=== PATIENT | male | born 1950 | race Caucasian/White ===

== ENCOUNTER 2023-07-30 13:21 | Inpatient (IN) | payer MEDICARE, OTHER, SELFPAY ==
[2023-07-30] VITALS (7 sets, daily range): BP systolic 98–117; BP diastolic 55–78; PULSE 87–109; RESP 16–18; TEMP 36.2–37.7; O2SAT 92–97; BMI 23.1; BMI 23.3
[2023-07-30 13:45] LABS: Lactate* 2.5 mmol/L (0.5-1.9)
[2023-07-30 14:05] LABS: Basophils Absolute Auto 0.01 K/uL (0.00-0.30); Basophils Percent Auto 0.1 % (0.0-3.0); Hematocrit 49.6 % (37.0-53.0); Immature Granulocytes Abs Auto 0.01 K/uL (0.00-0.30); Immature Granulocytes Pct Auto 0.1 %; Mean Corpuscular HGB Conc 32 gm/dL (32-36); Mean Corpuscular Hemoglobin 28 pg (26-34); Mean Corpuscular Volume 88 fL (80-100); Monocytes Percent Auto 8.6 % (0.0-11.0); Neutrophils Percent Auto 75.2 % (42.0-72.0); Platelet Count* 121 K/uL (140-440); RDW Coefficient of Variation % 14.1 % (11.5-15.5); Red Blood Count 5.65 m/uL (4.30-5.90); White Blood Count* 7.98 K/uL (4.50-11.00)
[2023-07-30 14:08] LABS: Slide Review Reflex No
[2023-07-30 14:09] LABS: Chloride* 101 mmol/L (96-114); Potassium* 4.5 mmol/L (3.6-5.1); Sodium* 138 mmol/L (135-149)
[2023-07-30 14:12] LABS: Est. Creatinine Clearance* 23.92; Estimated Glomerular Filt Rate 21 ml/min
[2023-07-30 14:13] LABS: Anion Gap 16 mEq/L (7-15); Blood Urea Nitrogen* 58 mg/dL (7-30); Calcium* 9.4 mg/dL (8.4-10.6); Carbon Dioxide* 21 mmol/L (20-32); Glucose* 132 mg/dL (60-115)
--- NOTE | 2023-07-30 14:17 | ED_ITS ---
<Statement entered by Chidi Wheeler MD - 08/02/23 14:21> . HPI - General Adult General Date Seen: 07/30/23 Chief complaint: Fever Stated complaint: Sepsis, low BP Time Seen by Provider: 07/30/23 13:46 Source: patient Mode of arrival: ambulatory Limitations: no limitations History of Present Illness HPI narrative: Patient is a 72-year-old male who comes in because of fevers which he says have been ongoing for 2 weeks. He says he gets shaking chills and has had temps up to 101.8. He says they resolve with Tylenol but after few hours his temperature is right back up. He denies any other symptoms including respiratory symptoms, abdominal pain, chest pain, cough, urinary symptoms, rashes, abdominal pain, vomiting or diarrhea, black or bloody stools. He does note that he had a tooth that started to bother him on of last week, and he went on to have a root canal at the beginning of this week, about 5 days ago. Medical history is notable for coronary artery disease, does have a history of atrial fibrillation and is maintained on Eliquis. He has a history of cardiac stent a number of years ago as well. Recent checkup revealed renal insufficiency. He does not know what his creatinine was. He is from [facility], does not get care around here. His apparently is at [facility]. Related Data Home Medications ?Medication ?Instructions ?Recorded ?Confirmed apixaban 5 mg tablet (Eliquis) 5 mg PO BID 07/30/23 08/09/23 atorvastatin 20 mg tablet 20 mg PO DAILY 07/30/23 08/09/23 dronedarone 400 mg tablet (Multaq) 400 mg PO BID 07/30/23 08/09/23 lisinopril 10 mg tablet 10 mg PO DAILY 07/30/23 08/09/23 Previous Rx's ?Medication ?Instructions ?Recorded Lactobacillus acidophilus 0.5 mg 100 mmu cells PO TIDWM 30 days 08/02/23 (100 million cell) tablet #180 tabs amoxicillin 875 mg-potassium 1 tab PO BIDWM 5 days #10 tabs 08/02/23 clavulanate 125 mg tablet doxycycline hyclate 100 mg tablet 100 mg PO BID 12 days #24 tabs 08/02/23 Allergies Allergy/AdvReac Type Severity Reaction Status Date / Time No Known Drug Allergies Allergy Verified 08/09/23 15:31 Review of Systems Status of ROS: Reports: 10 or more systems reviewed and unremarkable except as noted in History and below [facility] Medical History (Updated 08/17/23 @ 00:01 by Background Daemon) 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 - Other ehrlichiosis (ICD-10) Sepsis ?A41.9 - Sepsis, unspecified organism (ICD-10) Atrial fibrillation ?I48.91 - Unspecified atrial fibrillation (ICD-10) Chronic kidney disease ?N18.9 - Chronic kidney disease, unspecified (ICD-10) Coronary artery disease ?I25.10 - Atherosclerotic heart disease of [place] coronary artery without angina pectoris (ICD-10) Surgical History (Updated 07/30/23 @ 17:04 by Chidi Wheeler MD) History of root canal procedure ?Z98.890 - Other specified postprocedural states (ICD-10) History of coronary artery bypass graft ?Z95.1 - Presence of aortocoronary bypass graft (ICD-10) Social History (Updated 07/30/23 @ 17:06 by Chidi Wheeler MD) Narrative: Patient lives in [facility]. He commonly visits [place] where his is a resident of [facility]. She has multiple sclerosis. He has a son who lives in [facility] and a son who lives in [facility]. His sons are healthcare power of assistant district attorney. His code status is full. He does not smoke. He rarely drinks alcohol. 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 What is your current living situation?: I presently have a place to live Problems where you live: no known problems Problems where you live details: none In the past 12 months, utilities in danger of being shut off: no In past 12 months, lack of transportation kept you from medical appts, meetings, work, or getting things needed for daily living: no In the past 12 mos, have been you worried that your food would run out before you had money to buy more?: never true In the past 12 mos, the food you bought just didn't last and you didn't have money to buy more?: never true Highest level of school completed/degree received: Associate degree: academic program Smoking Status: Never smoker How often do you have a drink containing alcohol: monthly or less Alcohol type details: tatiana How often do you have six or more drinks on one occasion: Never AUDIT-C Alcohol total score: 1 Non-prescribed substance use: denies use Caffeine: No How often does anyone, including family, friends and others, physically hurt you : never How often does anyone, including family, friends and others, insult or talk down to you: never How often does anyone, including family, friends and others, threaten you with harm: never How often does anyone, including family, friends and others, scream or curse at you: never service: No Exam Narrative: Exam Narrative: Vital signs as noted above. In general, an alert, well-appearing patient. Head: Normocephalic, atraumatic. Eyes: Pupils are equal reactive. Extraocular movements are full. Conjunctivae are normal. ENT: Mucous membranes are moist. Throat is normal. Neck: Supple without lymphadenopathy. Heart: Irregular, rate controlled. He does have soft murmur heard left of the sternal border. Not aware of previous murmur. Lungs: Clear bilaterally. No increased work of breathing, crackles or wheezes. Abdomen: Soft and nontender. No masses. Extremities: Well perfused. No edema. No calf tenderness. Pulses intact. Neurologic: Patient is alert and oriented to person and place. Speech is fluent. Face is symmetric. Moves all extremities equally. Affect: Normal. Skin: Warm and dry. Well perfused. Const: Vital Signs, click to edit/add: Vital Signs - 24 hr 07/30/23 13:44 07/30/23 13:51 07/30/23 14:48 Temperature 97.2 F L 97.5 F L 97.5 F L Pulse Rate [Pulse Oximeter] 109 H 99 Respiratory Rate 16 18 Blood Pressure [Le ft Upper Arm] 116/78 98/56 L Pulse Oximetry 97 96 Oxygen Delivery Me thod Room Air Room Air Documenting provider has reviewed patient's vital signs: yes Course Course ED Course: An IV was established, he had a L of normal saline started. Labs were ordered. EKG shows atrial fibrillation with a ventricular rate of 98 beats per minute. No acute ST segment changes, T-waves are unremarkable. Labs thus far show a normal white blood cell count of 7.98, normal hemoglobin, platelets slightly low at 121. He has a minimal left shift with 75% neutrophils. Metabolic panel is notable for a BUN of 58 and a creatinine of 3, again baseline unknown. Blood sugar normal, lactate 2.5. CRP procalcitonin TSH are pending as is a UA. Diagnostic considerations include inflection, including bacterial endocarditis, low risk for tick-borne disease, but I did add a Lyme test and tick panel on. Discussed his care with the hospitalist as well, his lactate is 2.5 in his procalcitonin is elevated at 1.26. Source of possible infection really is not clear, given that endocarditis was on the differential I did have a 2nd set of blood cultures drawn, Dr. Wheeler saw him in the ER and will start antibiotics. Sed rate CRP are elevated, sed rate is 44 and CRP he is 9. LFTs are unremarkable. UA was negative. Vital Signs Vital signs: Initial Vital Signs Temperature 97.2 F L 07/30/23 13:44 Temperature Source Temporal Artery Scan 07/30/23 13:44 Pulse Rate 109 H 07/30/23 13:44 Respiratory Rate 16 07/30/23 13:44 Blood Pressure 116/78 07/30/23 13:44 Blood Pressure Mean 90 07/30/23 13:44 Pulse Oximetry 97 07/30/23 13:44 Oxygen Delivery Method Room Air 07/30/23 13:44 Vital Signs Temperature 97.2 F L 07/30/23 13:44 Pulse Rate 109 H 07/30/23 13:44 Respiratory Rate 16 07/30/23 13:44 Blood Pressure 116/78 07/30/23 13:44 Pulse Oximetry 97 07/30/23 13:44 Oxygen Delivery Method Room Air 07/30/23 13:44 Temperature 96.8 F L 08/02/23 11:00 Pulse Rate 78 08/02/23 11:00 Respiratory Rate 20 08/02/23 11:00 Blood Pressure 98/64 08/02/23 11:00 Pulse Oximetry 96 08/02/23 11:00 Oxygen Delivery Method Room Air 08/02/23 11:00 Medications Administered Medications: Discontinued Medications Generic Name Dose Route Start Last Admin Trade Name Freq PRN Reason Stop Dose Admin Amoxicillin/Clavulanate Potassium 875 mg 08/01/23 18:00 08/02/23 08:17 Amoxicillin/Clavulanate 875 Mg/125 Mg Tablet PO 875 mg BIDWM ELIZABETH Administration Apixaban 5 mg 07/30/23 21:00 08/02/23 09:21 Apixaban 5 Mg Tablet PO 5 mg BID ELIZABETH Administration Atorvastatin Calcium 20 mg 07/31/23 21:00 08/01/23 21:25 Atorvastatin 10 Mg Tablet PO 20 mg HS ELIZABETH Administration Doxycycline Hyclate 100 mg 07/30/23 21:00 08/02/23 09:21 Doxycycline Hyclate 100 Mg PO 100 mg BID ELIZABETH Administration Sodium Chloride 1,000 mls @ 1,000 mls/hr 07/30/23 14:00 07/30/23 15:13 0.9 % Sodium Chloride 1000 Ml IV 07/30/23 14:59 Infused .Q1H ELIZABETH Infusion Sodium Chloride 1,000 mls @ 1,000 mls/hr 07/30/23 15:00 07/30/23 16:07 0.9 % Sodium Chloride 1000 Ml IV 07/30/23 15:59 Infused .Q1H ELIZABETH Infusion Ceftriaxone Sodium 2 gm/ 100 mls @ 200 mls/hr 07/30/23 18:00 08/01/23 19:28 Sodium Chloride IVPB Infused Q24H ELIZABETH Infusion Vancomycin HCl 1,500 mg/ 515 mls @ 257.5 mls/hr 07/30/23 16:26 07/30/23 23:20 Sodium Chloride IVPB 07/30/23 16:27 Infused ONCE ONE Infusion Protocol Vancomycin HCl 1,250 mg/ 262.5 mls @ 256.25 mls/hr 08/01/23 09:00 08/01/23 19:28 Sodium Chloride IVPB Infused Q36H ELIZABETH Infusion Protocol Lactobacillus Acidophilus 2 tab 07/31/23 12:00 08/02/23 08:17 Lactobacillus Acidophilus 1 Tablet PO 2 tab TIDWM ELIZABETH Administration Metoprolol Tartrate 25 mg 07/30/23 21:00 08/02/23 09:21 Metoprolol Tartrate 25 Mg Tablet PO 25 mg BID ELIZABETH Administration Dronedarone [Multaq] 400 mg 07/30/23 21:00 08/02/23 09:21 400 Mg Tablet) PO 400 mg BID ELIZABETH Administration Perflutren Lipid Microsphere 2 ml 07/31/23 09:52 07/31/23 10:10 Perflutren Lipid Microspheres 2 Ml Vial IV 07/31/23 09:53 2 ml ONCE ONE Administration Sodium Chloride 5 ml 07/30/23 21:00 08/01/23 09:26 Sodium Chloride 0.9 % (Flush) 10 Ml Syringe IVF 5 ml BID ELIZABETH Administration Sodium Chloride 10 ml 07/31/23 10:09 08/02/23 09:23 Sodium Chloride 0.9 % (Flush) 10 Ml Syringe IVF 10 ml .FLUSH PRN Administration flush Medical Decision Making Lab Data Labs: Lab Results 07/30/23 07/30/23 07/30/23 Range/Units 13:35 13:57 14:13 WBC 7.98 (4.50-11.00) K/uL RBC 5.65 (4.30-5.90) m/uL Hgb 16.0 (13.5-17.5) gm/dL Hct 49.6 (37.0-53.0) % MCV 88 (80-100) fL MCH 28 (26-34) pg MCHC 32 (32-36) gm/dL RDW Coeff of Jack 14.1 (11.5-15.5) % Plt Count 121 L (140-440) K/uL Neut % (Auto) 75.2 H (42.0-72.0) % Lymph % (Auto) 16.0 L (20-44) % [place] % (Auto) 8.6 (0.0-11.0) % Eos % (Auto) 0.0 (0.0-7.0) % Baso % (Auto) 0.1 (0.0-3.0) % Neut # (Auto) 6.00 (1.7-7.0) K/uL Lymph # (Auto) 1.30 (0.90-2.90) K/uL [place] # (Auto) 0.70 (0.00-0.90) K/UL Eos # (Auto) 0.00 (0.00-0.50) K/uL Baso # (Auto) 0.01 (0.00-0.30) K/uL Abs Immat Gran (auto) 0.01 (0.00-0.30) K/uL Imm/Tot Granulo (auto) 0.1 % ESR 44 H (2-15) mm/hr Sodium 138 (135-149) mmol/L Potassium 4.5 (3.6-5.1) mmol/L Chloride 101 (96-114) mmol/L Carbon Dioxide 21 (20-32) mmol/L Anion Gap 16 H (7-15) mEq/L BUN 58 H (7-30) mg/dL Creatinine 3.0 H (0.5-1.5) mg/dL Estimated Creat Clear 23.92 Estimated GFR 21 ml/min Glucose 132 H (60-115) mg/dL Lactate 2.5 H (0.5-1.9) mmol/L Calcium 9.4 (8.4-10.6) mg/dL Total Bilirubin 1.1 (0.1-1.5) mg/dL Direct Bilirubin 0.4 (0.0-0.5) mg/dL AST 44 H (12-35) U/L ALT 37 (4-50) U/L Alkaline Phosphatase 67 (40-150) U/L C-Reactive Protein 9.0 H (0.5-1.0) mg/dL Total Protein 8.7 H (6.0-8.3) g/dL Albumin 4.8 (3.3-5.0) g/dL Procalcitonin 1.26 H (<0.50) ng/mL TSH 1.960 (0.270-4.200) uIU/mL Urine Color [place] A (Yellow) Urine Appearance Cloudy A (Clear) Urine pH 5.5 (5.0-8.5) Ur Specific [place] 1.020 (1.000-1.030) Urine Protein 1+ A (Negative) Urine Glucose (UA) Negative (Negative) Urine Ketones Trace A (Negative) Urine Blood Negative (Negative) Urine Nitrite Negative (Negative) Urine Bilirubin Negative (Negative) Urine Urobilinogen 0.2 (0.2-1.0) Ur Leukocyte Esterase Negative (Negative) Urine RBC 0-2 (0-2) Urine WBC 0-2 (0-5) Ur Squamous Epith Cells Few (None-Few) Amorphous Sediment Moderate A (None) Urine Bacteria Moderate A (None) Urine Mucus Few A (None) A. phagocytophilum DNA Detected A Bab[place] Species (PCR) Not Detected Lyme Disease Antibody 0.88 (<=0.90) IV SARS-CoV-2 (PCR) Negative SARS-CoV-2 (Negative) E.ewingii/canis DNA PCR Not Detected E. muris-like DNA (PCR) Not Detected Influenza Type A (PCR) Negative PCR FLU A (Negative) Influenza Type B (PCR) Negative PCR FLU B (Negative) RSV (PCR) Negative PCR RSV (Negative) Babesia microti (PCR) Not Detected E. chaffeensis (PCR) Not Detected POC Troponin I 0.03 (0.01-0.04) ng/ml Discharge Plan Discharge Condition: Improved Activity Level: Activity as Tolerated Discharge Diet: 2 gm Sodium
[2023-07-30] MEDS: 0.9 % SODIUM CHLORIDE 1000 ml 1,000 ML IV ×2 (14:24→15:13)
[2023-07-30 14:25] LABS: Troponin, Point-of-Care* 0.03 ng/ml (0.01-0.04)
[2023-07-30 14:30] LABS: Procalcitonin* 1.26 ng/mL (<0.50)
[2023-07-30 14:31] LABS: Appearance Urine Cloudy (Clear); Bilirubin Urine Negative (Negative); Blood Urine Negative (Negative); Color Urine Orange (Yellow); Glucose Urine Negative (Negative); Ketones Urine Trace (Negative); Leukocyte Esterase Urine Negative (Negative); Nitrite Urine Negative (Negative); Protein Urine 1+ (Negative); Urobilinogen Urine 0.2 (0.2-1.0); pH Urine 5.5 (5.0-8.5)
[2023-07-30 14:32] LABS: Albumin* 4.8 g/dL (3.3-5.0)
[2023-07-30 14:35] LABS: Aspartate Amino Transferase* 44 U/L (12-35); Bilirubin Direct* 0.4 mg/dL (0.0-0.5); Bilirubin Total* 1.1 mg/dL (0.1-1.5); Total Protein* 8.7 g/dL (6.0-8.3)
[2023-07-30 14:36] LABS: Alanine Aminotransferase* 37 U/L (4-50); Alkaline Phosphatase* 67 U/L (40-150)
[2023-07-30 14:44] LABS: Amorphous Sediment Urine Moderate; Bacteria Urine Moderate; RBC Urine 0-2 (0-2); Squamous Epithelial Cell Urine Few (None-Few); WBC Urine 0-2 (0-5)
[2023-07-30 14:45] LABS: Mucus Urine Few
[2023-07-30 14:49] LABS: Erythrocyte SedimentationRate* 44 mm/hr (2-15)
[2023-07-30 15:13] LABS: PCR FLU A Negative PCR FLU A (Negative); PCR FLU B Negative PCR FLU B (Negative); PCR RSV Negative PCR RSV (Negative)
[2023-07-30 15:26] LABS: SARS PCR* Negative SARS-CoV-2 (Negative)
--- NOTE | 2023-07-30 16:52 | P.IMHP_ITS ---
Hospitalist- H&P: HPI History of Present Illness Date Seen: 08/02/23 Chief complaint: Sepsis, low BP Narrative: Dc Joaquin is a 72 year old male admitted through the emergency department with fever. Patient was in his usual state of good health until July 16 when he awoke with profound fatigue and malaise. At that time he did not have a fever. He slowly got better over the next couple days that was not entirely normal when he had a routinely scheduled physical examination at clinic on July 19. At that time no obvious illness, infection was identified except they found that he had low white blood count and his creatinine was elevated at 3. The creatinine elevation was probably chronic by his reporting. In the past week he is having fevers. He can suppress the fever with acetaminophen but it comes back after a few hours. He is measuring oral temperatures at home between 101 in 102? F. Also in the past week he began to have pain in one of his molars on his right maxilla. Four days ago he was seen by his dentist for what looked like an abscessed tooth. He was started on Augmentin. Three days ago he underwent a root canal of that same tooth. He continued on Augmentin. The pain in his tooth is better. He continues to have fevers however. He has had no other symptoms of illness. Specifically denies cold, cough, sore throat, head or neck pain, shortness of breath, nausea or vomiting, abdominal pain, diarrhea, urinary problems, skin rash, swollen joints. He has no history of immunocompromise in condition. He has had no significant recent travel. This summer he visited his son in [place], [place]. He lives in [place], [place] and does spend some time outdoors. Heave visits his son in [place] and his who is a resident at [address] [place] [address]. He reports that he had a deer tick bite a few weeks ago. Other than his abscessed tooth he has not had obvious symptoms of illness. Review of Systems Narrative: Review of systems is negative except as noted above. [facility] Medical History (Updated 08/01/23 @ 16:14 by Gerard Estrada MD) Sepsis ?A41.9 - Sepsis, unspecified organism (ICD-10) Atrial fibrillation ?I48.91 - Unspecified atrial fibrillation (ICD-10) Chronic kidney disease ?N18.9 - Chronic kidney disease, unspecified (ICD-10) Coronary artery disease ?I25.10 - Atherosclerotic heart disease of [place] coronary artery without angina pectoris (ICD-10) Surgical History (Updated 07/30/23 @ 17:04 by Chidi Wheeler MD) History of root canal procedure ?Z98.890 - Other specified postprocedural states (ICD-10) History of coronary artery bypass graft ?Z95.1 - Presence of aortocoronary bypass graft (ICD-10) Social History (Updated 07/30/23 @ 17:06 by Chidi Wheeler MD) Narrative: Patient lives in [facility]. He commonly visits [place] where his is a resident of [facility]. She has multiple sclerosis. He has a son who lives in [facility] and a son who lives in [facility]. His sons are healthcare power of bench assembler electrical. His code status is full. He does not smoke. He rarely drinks alcohol. 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 What is your current living situation?: I presently have a place to live Problems where you live: no known problems Problems where you live details: none In the past 12 months, utilities in danger of being shut off: no In past 12 months, lack of transportation kept you from medical appts, meetings, work, or getting things needed for daily living: no In the past 12 mos, have been you worried that your food would run out before you had money to buy more?: never true In the past 12 mos, the food you bought just didn't last and you didn't have money to buy more?: never true Highest level of school completed/degree received: Associate degree: academic program Smoking Status: Never smoker How often do you have a drink containing alcohol: monthly or less Alcohol type details: tatiana How often do you have six or more drinks on one occasion: Never AUDIT-C Alcohol total score: 1 Non-prescribed substance use: denies use Caffeine: No How often does anyone, including family, friends and others, physically hurt you : never How often does anyone, including family, friends and others, insult or talk down to you: never How often does anyone, including family, friends and others, threaten you with harm: never How often does anyone, including family, friends and others, scream or curse at you: never service: No Meds Home Medications and Allergies Home Medications Medication Instructions Recorded Confirmed Type apixaban 5 mg tablet (Eliquis) 5 mg PO BID 07/30/23 07/31/23 History atorvastatin 20 mg tablet 20 mg PO DAILY 07/30/23 07/31/23 History dronedarone 400 mg tablet (Multaq) 400 mg PO BID 07/30/23 07/31/23 History lisinopril 10 mg tablet 10 mg PO DAILY 07/30/23 07/31/23 History Allergies Allergy/AdvReac Type Severity Reaction Status Date / Time No Known Drug Allergies Allergy Verified 07/30/23 12:09 Exam Narrative: Exam Narrative: He is alert and appears in no distress. He gives his own history. Eyes are normal. Oropharynx is normal. Neck is supple without mass or adenopathy or tenderness. Respirations are clear to auscultation. Cardiovascular: S1, S2, irregular rate and rhythm. 1/6 systolic ejection murmur at the right upper sternal border. Abdomen is soft without tenderness or mass. Skin is without rash. No splinter hemorrhages. Good peripheral pulses. Extremities are cool to touch. Const: Vital Signs, click to edit/add: Vital Signs - 24 hr 07/30/23 13:44 07/30/23 13:51 07/30/23 14:48 Temperature 97.2 F L 97.5 F L 97.5 F L Pulse Rate [Pulse Oximeter] 109 H 99 Pulse Rate [Right Pulse Oximeter] Respiratory Rate 16 18 Blood Pressure [Le ft Arm] Blood Pressure [Le ft Upper Arm] 116/78 98/56 L Blood Pressure [Ri ght Arm] Pulse Oximetry 97 96 Oxygen Delivery Me thod Room Air Room Air 07/30/23 16:33 Temperature 98.1 F Pulse Rate [Pulse Oximeter] Pulse Rate [Right Pulse Oximeter] 109 H Respiratory Rate 18 Blood Pressure [Le ft Arm] 114/67 Blood Pressure [Le ft Upper Arm] Blood Pressure [Ri ght Arm] 117/75 Pulse Oximetry 93 Oxygen Delivery Me thod Room Air Documenting provider has reviewed patient's vital signs: yes Hospitalist - H&P: Result Labs Labs: Short CBC 07/30/23 Range/Units 13:35 WBC 7.98 (4.50-11.00) K/uL Hgb 16.0 (13.5-17.5) gm/dL Hct 49.6 (37.0-53.0) % Plt Count 121 L (140-440) K/uL BMP 07/30/23 13:35 Sodium 138 Potassium 4.5 Chloride 101 Carbon Dioxide 21 BUN 58 H Creatinine 3.0 H Glucose 132 H Calcium 9.4 Liver Function 07/30/23 Range/Units 13:35 Total Bilirubin 1.1 (0.1-1.5) mg/dL Direct Bilirubin 0.4 (0.0-0.5) mg/dL AST 44 H (12-35) U/L ALT 37 (4-50) U/L Alkaline Phosphatase 67 (40-150) U/L Albumin 4.8 (3.3-5.0) g/dL Urine 07/30/23 Range/Units 14:13 Urine Color [place] A (Yellow) Urine Appearance Cloudy A (Clear) Urine pH 5.5 (5.0-8.5) Ur Specific [place] 1.020 (1.000-1.030) Urine Protein 1+ A (Negative) Urine Glucose (UA) Negative (Negative) ECG Attestation: I personally reviewed and interpreted this ECG as follows: (Atrial fibrillation with a rate of 98. Left anterior fascicular block.) ECG interpretation date: 07/30/23 Assessment and Plan Assessment and plan (1) Chronic kidney disease: Problem comment: Patient probably has had a creatinine around 3 in the past. Obtain old records to assess chronicity and plan for chronic kidney disease. Continue to monitor. Status: Acute (2) Dental abscess: Problem comment: - Developed in the last week. Root canal on 07/27/2023. - start oral Augmentin 875/1251 tab p.o. b.i.d. on 08/01/2023. Status: Acute (3) Fever: Problem comment: - Patient reports fever at home for at least a week. Cause for this is unknown. Concern for fever related to dental infection, endocarditis, tick bite. Awaiting blood cultures, which are negative to date, and serology for tick bite. Since he has been on oral antibiotics cultures may grow slowly or be negative. Empiric treatment with vancomycin and ceftriaxone. - I stopped the vancomycin and ceftriaxone on 08/01/2023. Continue to monitor overnight in hospital. Status: Acute (4) Atrial fibrillation: Problem comment: History of atrial fibrillation for several years. 2015 had a LESLY/cardioversion. Has had rhythm control with dronedarone. On Eliquis. Currently back in AFib. Continue Eliquis and monitor for now. Rate control if needed. No indication for cardioversion at this time. Status: Acute (5) Sepsis: Problem comment: Patient meets criteria for sepsis with tachycardia, hypotension, fever, elevated lactate. Because this will initiate empiric antibiotics pending cultures Status: Acute (6) Chronic systolic heart failure: Problem comment: - transthoracic echocardiogram 07/30/2023: Global LV hypokinesis with EF of 35%. Moderate to severe low-flow aortic stenosis. - continue on current medication regimen. - warrants outpatient cardiology follow-up. Status: Acute (7) Aortic stenosis: Problem comment: - transthoracic echocardiogram 07/30/2023: Global LV hypokinesis with EF of 35%. Moderate to severe low-flow aortic stenosis. - continue on current medication regimen. - warrants outpatient cardiology follow-up. Status: Acute Plan Patient is admitted to the hospital for ongoing evaluation management of fever and sepsis. Initiate vancomycin and ceftriaxone and doxycycline for empiric treatment of possible endocarditis, dental abscess, tick bite. Await blood cultures and follow clinical course. Total time spent today is 85 minutes, 55 minutes in coordination of care discussing with patient and other providers ongoing evaluation and management.
[2023-07-30 18:48] LABS: Lactate Sepsis w/Reflex* 1.8 mmol/L (0.5-1.9)
--- NOTE | 2023-07-30 18:57 | PC.NURSE ---
shift note: pt to rm 261 via cart from ED @ 6202. Pt up indept in room. pt states he has chills. pt afeb. vss stable. pt irreg HR. tele in place reading at fib. IV intact Rt AC. LS clr.
[2023-07-30] MEDS: cefTRIAXone 2 GM in 0.9 % SODIUM CHLORIDE Mini-bag 100 ML IVPB (19:29)
[2023-07-30] MEDS: APIXABAN 5 MG TABLET PO (21:34)
[2023-07-30] MEDS: METOPROLOL TARTRATE 25 MG TABLET PO (21:34)
[2023-07-30] MEDS: DOXYCYCLINE HYCLATE 100 MG PO (21:34)
[2023-07-30] MEDS: SODIUM CHLORIDE 0.9 % (FLUSH) 10 ML SYRINGE 5 ML IVF (23:01)
[2023-07-31 03:00] VITALS: BP 102/62; PULSE 91; RESP 18; TEMP 36.7; O2SAT 94
[2023-07-31 04:52] VITALS: PULSE 80
--- NOTE | 2023-07-31 06:42 | PC.NURSE ---
End of Shift: Pt AO throughout shift, pleasant and cooperative. Independent in room. Continent with bladder, no BM throughout shift. VSS, bp's soft at 100/55 and 102/62. Afebrile throughout shift. Reports feeling much better. Tele remained on and captured throughout shift, Afib. O2 sats stable, RA.
[2023-07-31 06:59] LABS: Basophils Absolute Auto 0.01 K/uL (0.00-0.30); Basophils Percent Auto 0.2 % (0.0-3.0); Hematocrit 38.2 % (37.0-53.0); Hemoglobin* 12.3 gm/dL (13.5-17.5); Immature Granulocytes Abs Auto 0.04 K/uL (0.00-0.30); Immature Granulocytes Pct Auto 0.6 %; Lymphocytes Absolute Auto 1.55 K/uL (0.90-2.90); Lymphocytes Percent Auto 24.3 % (20-44); Mean Corpuscular HGB Conc 32 gm/dL (32-36); Mean Corpuscular Hemoglobin 28 pg (26-34); Mean Corpuscular Volume 87 fL (80-100); Monocytes Percent Auto 14.1 % (0.0-11.0); Neutrophils Absolute Auto 3.88 K/uL (1.7-7.0); Neutrophils Percent Auto 60.8 % (42.0-72.0); Platelet Count* 110 K/uL (140-440); RDW Coefficient of Variation % 14.3 % (11.5-15.5); White Blood Count* 6.38 K/uL (4.50-11.00)
[2023-07-31 07:00] VITALS: BP 95/65; PULSE 87; PULSE 94; RESP 18; TEMP 36.9; O2SAT 97
[2023-07-31 07:05] LABS: Lactate* 0.6 mmol/L (0.5-1.9)
[2023-07-31 07:08] LABS: Slide Review Reflex No
[2023-07-31 07:24] LABS: Chloride* 109 mmol/L (96-114); Potassium* 4.8 mmol/L (3.6-5.1); Sodium* 136 mmol/L (135-149)
[2023-07-31 07:27] LABS: Creatinine* 2.1 mg/dL (0.5-1.5); Est. Creatinine Clearance* 34.13; Estimated Glomerular Filt Rate 33 ml/min
[2023-07-31 07:28] LABS: Anion Gap 8 mEq/L (7-15); Blood Urea Nitrogen* 49 mg/dL (7-30); Calcium* 8.2 mg/dL (8.4-10.6); Carbon Dioxide* 19 mmol/L (20-32); Glucose* 122 mg/dL (60-115); Magnesium* 2.1 mg/dL (1.5-2.6)
[2023-07-31 07:51] LABS: C Reactive Protein* 18.7 mg/dL (0.5-1.0)
[2023-07-31] MEDS: PERFLUTREN LIPID MICROSPHERES 2 ML VIAL IV (10:10)
[2023-07-31] MEDS: SODIUM CHLORIDE 0.9 % (FLUSH) 10 ML SYRINGE IVF (10:10)
[2023-07-31] MEDS: METOPROLOL TARTRATE 25 MG TABLET PO ×2 (10:18→21:24)
[2023-07-31] MEDS: DOXYCYCLINE HYCLATE 100 MG PO ×2 (10:19→21:24)
[2023-07-31] MEDS: APIXABAN 5 MG TABLET PO ×2 (10:19→21:23)
[2023-07-31 11:00] VITALS: BP 91/65; PULSE 79; RESP 18; TEMP 36.2; O2SAT 97
[2023-07-31] MEDS: LACTOBACILLUS ACIDOPHILUS 1 TABLET 2 TAB PO (13:09)
--- NOTE | 2023-07-31 16:13 | PM.IMPN1 ---
Progress Note: A&P Assessment and plan (1) Fever: Problem details: Patient reports fever at home for at least a week. Cause for this is unknown. Concern for fever related to dental infection, endocarditis, tick bite. Awaiting blood cultures and serology for tick bite. Since he has been on oral antibiotics cultures may grow slowly or be negative. Empiric treatment with vancomycin and ceftriaxone. Status: Acute (2) Dental abscess: Problem details: Developed in the last week. Root canal on 07/27/2023 Status: Acute (3) Sepsis: Problem details: Patient meets criteria for sepsis with tachycardia, hypotension, fever, elevated lactate. Because this will initiate empiric antibiotics pending cultures Status: Acute (4) Chronic kidney disease: Problem details: Patient probably has had a creatinine around 3 in the past. Obtain old records to assess chronicity and plan for chronic kidney disease. Continue to monitor. Status: Acute (5) Atrial fibrillation: Problem details: History of atrial fibrillation for several years. 2015 had a LESLY/cardioversion. Has had rhythm control with dronedarone. On Eliquis. Currently back in AFib. Continue Eliquis and monitor for now. Rate control if needed. No indication for cardioversion at this time. Status: Acute (6) Tick bite: Problem details: - possible deer tick bite 2-3 weeks ago without dermatoses or other assessment up until this hospitalization Status: Acute Plan 1. Continue with broad-spectrum antibiotic coverage, with IV vancomycin, ceftriaxone, and oral doxycycline. 2. DNA studies for Ehrlichiosis, babesiosis, and anaplasmosis are still pending. 3. Blood cultures negative to date. 4. Obtain outside medical records above and beyond that which we have already received. Time Spent With Patient Total time spent: 40 minutes Subjective Date Seen: 07/31/23 Interval history: Hospital day 2. History of present illness: ?Dc Joaquin is a 72 year old male admitted through the emergency department with fever. Patient was in his usual state of good health until July 16 when he awoke with profound fatigue and malaise. At that time he did not have a fever. He slowly got better over the next couple days that was not entirely normal when he had a routinely scheduled physical examination at clinic on July 19. At that time no obvious illness, infection was identified except they found that he had low white blood count and his creatinine was elevated at 3. The creatinine elevation was probably chronic by his reporting. In the past week he is having fevers. He can suppress the fever with acetaminophen but it comes back after a few hours. He is measuring oral temperatures at home between 101 in 102? F. Also in the past week he began to have pain in one of his molars on his right maxilla. Four days ago he was seen by his dentist for what looked like an abscessed tooth. He was started on Augmentin. Three days ago he underwent a root canal of that same tooth. He continued on Augmentin. The pain in his tooth is better. He continues to have fevers however. He has had no other symptoms of illness. Specifically denies cold, cough, sore throat, head or neck pain, shortness of breath, nausea or vomiting, abdominal pain, diarrhea, urinary problems, skin rash, swollen joints. He has no history of immunocompromise in condition. He has had no significant recent travel. This summer he visited his son in [place], [place]. He lives in [place], [place] and does spend some time outdoors. Heave visits his son in [place] and his who is a resident at [address] [place] [address]. He reports that he had a deer tick bite a few weeks ago. Other than his abscessed tooth he has not had obvious symptoms of illness.? Patient notes that he has not had any fevers, rigors, diaphoresis since he started treatment here in the hospital. In that regard he feels much improved. Still feels a sense of weakness and not quite back to himself he had. Denies myalgias, arthralgias, rigors, diaphoresis. Denies focal motor neurologic deficits. Facial discomfort generally decreasing. Exam Narrative: Exam Narrative: I examined the patient in his hospital room. Appears comfortable no acute distress. Alert and oriented to self, place, time, situation. Friendly, articulate, cooperative. Lungs are clear to auscultation without wheezing, rhonchi, or rales. No CVA tenderness. Chest wall excursions are full. Heart tones with regular rhythm, normal S1-S2. Grade 2-3 systolic murmur best heard left lower sternal border. No gallop or rub. PMI not laterally displaced. Abdomen with active bowel sounds, soft, nontender. Skin is warm, intact, without rashes. No petechiae or jaundice. No cyanosis. No focal motor neurologic deficits. Independent in transfer, station, and gait. No lower extremity edema. Capillary refill less than 3 seconds. Const: Vital Signs, click to edit/add: Vital Signs - 24 hr 07/30/23 16:33 07/30/23 17:04 07/30/23 19:00 Temperature 98.1 F 99.8 F H Pulse Rate Pulse Rate [Right Pulse Oximeter] 109 H 99 Respiratory Rate 18 18 Blood Pressure [Le ft Arm] 114/67 105/56 L Blood Pressure [Ri ght Arm] 117/75 Pulse Oximetry 93 93 94 Oxygen Delivery Me thod Room Air Room Air Room Air 07/30/23 23:00 07/30/23 23:00 07/31/23 03:00 Temperature 99.5 F 98.0 F Pulse Rate Pulse Rate [Right Pulse Oximeter] 87 92 91 Respiratory Rate 16 18 18 Blood Pressure [Le ft Arm] 100/55 L 102/62 Blood Pressure [Ri ght Arm] Pulse Oximetry 92 94 Oxygen Delivery Az thod Room Air Room Air 07/31/23 04:52 07/31/23 07:00 07/31/23 07:00 Temperature 98.4 F Pulse Rate 80 87 Pulse Rate [Right Pulse Oximeter] 94 Respiratory Rate 18 Blood Pressure [Le ft Arm] 95/65 Blood Pressure [Ri ght Arm] Pulse Oximetry 97 Oxygen Delivery Me thod Room Air 07/31/23 11:00 Temperature 97.1 F L Pulse Rate Pulse Rate [Right Pulse Oximeter] 79 Respiratory Rate 18 Blood Pressure [Le ft Arm] 91/65 Blood Pressure [Ri ght Arm] Pulse Oximetry 97 Oxygen Delivery Me thod Room Air Labs Labs: Laboratory Results - last 24 hr 07/30/23 07/31/23 18:44 06:12 WBC 6.38 RBC 4.40 Hgb 12.3 L Hct 38.2 MCV 87 MCH 28 MCHC 32 RDW Coeff of Jack 14.3 Plt Count 110 L Neut % (Auto) 60.8 Lymph % (Auto) 24.3 [place] % (Auto) 14.1 H Eos % (Auto) 0.0 Baso % (Auto) 0.2 Neut # (Auto) 3.88 Lymph # (Auto) 1.55 [place] # (Auto) 0.90 Eos # (Auto) 0.00 Baso # (Auto) 0.01 Abs Immat Gran (auto) 0.04 Imm/Tot Granulo (auto) 0.6 Sodium 136 Potassium 4.8 Chloride 109 Carbon Dioxide 19 L Anion Gap 8 BUN 49 H Creatinine 2.1 H Estimated Creat Clear 34.13 Estimated GFR 33 Glucose 122 H Lactate 1.8 0.6 Calcium 8.2 L Magnesium 2.1 C-Reactive Protein 18.7 H ECG Prior ECG tracings: not available for review Interpretation: Preliminary transthoracic echocardiogram obtained 07/31/2023 demonstrates: Moderate decrease in LV function with EF of 30-35% with multiple regional motion abnormalities. We do not know if regional wall motion abnormalities or the decreased LV function is new or old. [id number] aortic stenosis. No obvious vegetation noted.
[2023-07-31] MEDS: cefTRIAXone 2 GM in 0.9 % SODIUM CHLORIDE Mini-bag 100 ML IVPB (17:36)
[2023-07-31 18:12] LABS: C Reactive Protein* 16.3 mg/dL (0.5-1.0)
[2023-07-31 19:00] VITALS: BP 99/62; PULSE 72; RESP 18; TEMP 36.6; O2SAT 96
--- NOTE | 2023-07-31 19:35 | PC.NURSE ---
shift note: pt up indept in room. pt denies pain. pt afeb. with stable vss. IV patent.
[2023-07-31] MEDS: SODIUM CHLORIDE 0.9 % (FLUSH) 10 ML SYRINGE 5 ML IVF (21:24)
[2023-07-31 23:40] VITALS: BP 91/57; PULSE 79; RESP 16; TEMP 36.4; O2SAT 94
[2023-07-31] MEDS: ATORVASTATIN 10 MG TABLET 20 MG PO (23:42)
[2023-08-01] VITALS (8 sets, daily range): BP systolic 96–115; BP diastolic 58–68; PULSE 62–83; RESP 16–18; TEMP 36.2–36.5; O2SAT 95–97
--- NOTE | 2023-08-01 04:59 | PC.NURSE ---
Pt pleasant and cooperative. No c/o over night. VSS he does have a B/P that runs on the lower end. He has been asymptomatic He has been stable with his VS. with this. Up independantly.
[2023-08-01 06:34] LABS: Basophils Absolute Auto 0.01 K/uL (0.00-0.30); Basophils Percent Auto 0.2 % (0.0-3.0); Eosinophils Absolute Auto 0.15 K/uL (0.00-0.50); Eosinophils Percent Auto 2.7 % (0.0-7.0); Hematocrit 40.6 % (37.0-53.0); Immature Granulocytes Abs Auto 0.01 K/uL (0.00-0.30); Immature Granulocytes Pct Auto 0.2 %; Mean Corpuscular HGB Conc 32 gm/dL (32-36); Mean Corpuscular Hemoglobin 28 pg (26-34); Mean Corpuscular Volume 88 fL (80-100); Monocytes Percent Auto 12.2 % (0.0-11.0); Neutrophils Percent Auto 36.7 % (42.0-72.0); Platelet Count* 145 K/uL (140-440); RDW Coefficient of Variation % 14.6 % (11.5-15.5); Slide Review Reflex No
--- NOTE | 2023-08-01 06:44 | PC.NURSE ---
Pt pleasant and cooperative. He is up independantly. Tele is A-fib at a controlled rate. Pt has remained afebrile. B/P remains low at 90's /40's. No dizzyness noted at this time.
[2023-08-01 06:56] LABS: Chloride* 113 mmol/L (96-114); Sodium* 143 mmol/L (135-149)
[2023-08-01 06:57] LABS: Potassium* 5.1 mmol/L (3.6-5.1)
[2023-08-01 06:59] LABS: Anion Gap 10 mEq/L (7-15); Blood Urea Nitrogen* 43 mg/dL (7-30); Carbon Dioxide* 20 mmol/L (20-32); Creatinine* 1.8 mg/dL (0.5-1.5); Est. Creatinine Clearance* 38.69; Estimated Glomerular Filt Rate 39 ml/min
[2023-08-01 07:00] LABS: Calcium* 8.8 mg/dL (8.4-10.6); Glucose* 113 mg/dL (60-115)
[2023-08-01 07:11] LABS: NT Pro B Type NatriureticPept* 13700 pg/mL
[2023-08-01] MEDS: DOXYCYCLINE HYCLATE 100 MG PO ×2 (09:25→21:26)
[2023-08-01] MEDS: METOPROLOL TARTRATE 25 MG TABLET PO ×2 (09:25→21:26)
[2023-08-01] MEDS: LACTOBACILLUS ACIDOPHILUS 1 TABLET 2 TAB PO ×3 (09:26→18:18)
[2023-08-01] MEDS: SODIUM CHLORIDE 0.9 % (FLUSH) 10 ML SYRINGE 5 ML IVF (09:26)
[2023-08-01] MEDS: APIXABAN 5 MG TABLET PO ×2 (09:26→21:25)
[2023-08-01 11:32] LABS: C Reactive Protein* 13.7 mg/dL (0.5-1.0)
--- NOTE | 2023-08-01 16:05 | PM.IMPN1 ---
Progress Note: A&P Assessment and plan (1) Fever: Problem details: - Patient reports fever at home for at least a week. Cause for this is unknown. Concern for fever related to dental infection, endocarditis, tick bite. Awaiting blood cultures, which are negative to date, and serology for tick bite. Since he has been on oral antibiotics cultures may grow slowly or be negative. Empiric treatment with vancomycin and ceftriaxone. - I stopped the vancomycin and ceftriaxone on 08/01/2023. Continue to monitor overnight in hospital. Status: Acute (2) Dental abscess: Problem details: - Developed in the last week. Root canal on 07/27/2023. - start oral Augmentin 875/1251 tab p.o. b.i.d. on 08/01/2023. Status: Acute (3) Sepsis: Problem details: Patient meets criteria for sepsis with tachycardia, hypotension, fever, elevated lactate. Because this will initiate empiric antibiotics pending cultures Status: Acute (4) Chronic kidney disease: Problem details: Patient probably has had a creatinine around 3 in the past. Obtain old records to assess chronicity and plan for chronic kidney disease. Continue to monitor. Status: Acute (5) Atrial fibrillation: Problem details: History of atrial fibrillation for several years. 2015 had a LESLY/cardioversion. Has had rhythm control with dronedarone. On Eliquis. Currently back in AFib. Continue Eliquis and monitor for now. Rate control if needed. No indication for cardioversion at this time. Status: Acute (6) Tick bite: Problem details: - possible deer tick bite 2-3 weeks ago without dermatoses or other assessment up until this hospitalization. On oral doxycycline. Status: Acute Plan 1. Reviewed impression and plan with patient. He is agreeable. Time Spent With Patient Total time spent: 35 minutes Subjective Date Seen: 08/01/23 Interval history: Hospital day 2. History of present illness: ?Dc Joaquin is a 72 year old male admitted through the emergency department with fever. Patient was in his usual state of good health until July 16 when he awoke with profound fatigue and malaise. At that time he did not have a fever. He slowly got better over the next couple days that was not entirely normal when he had a routinely scheduled physical examination at clinic on July 19. At that time no obvious illness, infection was identified except they found that he had low white blood count and his creatinine was elevated at 3. The creatinine elevation was probably chronic by his reporting. In the past week he is having fevers. He can suppress the fever with acetaminophen but it comes back after a few hours. He is measuring oral temperatures at home between 101 in 102? F. Also in the past week he began to have pain in one of his molars on his right maxilla. Four days ago he was seen by his dentist for what looked like an abscessed tooth. He was started on Augmentin. Three days ago he underwent a root canal of that same tooth. He continued on Augmentin. The pain in his tooth is better. He continues to have fevers however. He has had no other symptoms of illness. Specifically denies cold, cough, sore throat, head or neck pain, shortness of breath, nausea or vomiting, abdominal pain, diarrhea, urinary problems, skin rash, swollen joints. He has no history of immunocompromise in condition. He has had no significant recent travel. This summer he visited his son in [place], [place]. He lives in [place], [place] and does spend some time outdoors. Heave visits his son in [place] and his who is a resident at [address] [place] [address]. He reports that he had a deer tick bite a few weeks ago. Other than his abscessed tooth he has not had obvious symptoms of illness.? No further fevers, rigors, diaphoresis since admission to the hospital. Sense of weakness is improved. Denies myalgias, arthralgias, rigors, diaphoresis. Denies focal motor neurologic deficits. Facial discomfort generally decreasing. Denies chest heaviness, pressure, tightness, or pain. Denies dyspnea at rest, paroxysmal nocturnal dyspnea, orthopnea. Denies syncope or near-syncope. Denies orthostasis. Denies palpitations or chest fluttering. Denies lower extremity edema. Exam Narrative: Exam Narrative: I examine him in his hospital room. Appears comfortable and in no acute distress. Friendly, articulate, cooperative. Alert, oriented to self, place, time, situation. Lungs clear to auscultation. Heart tones with regular rhythm. Grade 2/6 systolic murmur left lower sternal border unchanged. No gallop or rub. Abdomen with active bowel sounds, soft, nontender. Extremities without edema. Independent in transfer, station, and gait. No focal motor neurologic deficits. Skin is warm, dry, intact. No rashes, petechiae, or cyanosis. No splinter hemorrhages. Const: Vital Signs, click to edit/add: Vital Signs - 24 hr 07/31/23 19:00 07/31/23 23:40 08/01/23 00:15 Temperature 97.8 F 97.5 F L Pulse Rate 67 Pulse Rate [Right Pulse Oximeter] 72 79 Respiratory Rate 18 16 Blood Pressure [Le ft Arm] 91/57 L Blood Pressure [Ri ght Arm] 99/62 Pulse Oximetry 96 94 Oxygen Delivery Me thod Room Air Room Air 08/01/23 03:00 08/01/23 07:00 08/01/23 07:00 Temperature 97.4 F L 97.7 F Pulse Rate 82 Pulse Rate [Right Pulse Oximeter] 62 83 Respiratory Rate 16 16 Blood Pressure [Le ft Arm] 97/64 Blood Pressure [Ri ght Arm] 115/68 Pulse Oximetry 95 97 Oxygen Delivery Me thod Room Air Room Air 08/01/23 11:00 08/01/23 15:00 Temperature 97.1 F L Pulse Rate 70 Pulse Rate [Right Pulse Oximeter] 80 Respiratory Rate 16 Blood Pressure [Le ft Arm] 103/65 Blood Pressure [Ri ght Arm] Pulse Oximetry 95 Oxygen Delivery Me thod Room Air Documenting provider has reviewed patient's vital signs: yes Labs Labs: Laboratory Results - last 24 hr 07/31/23 08/01/23 17:20 06:17 WBC 5.50 RBC 4.60 Hgb 13.0 L Hct 40.6 MCV 88 MCH 28 MCHC 32 RDW Coeff of Jack 14.6 Plt Count 145 Neut % (Auto) 36.7 L Lymph % (Auto) 48.0 H [place] % (Auto) 12.2 H Eos % (Auto) 2.7 Baso % (Auto) 0.2 Neut # (Auto) 2.00 Lymph # (Auto) 2.60 [place] # (Auto) 0.70 Eos # (Auto) 0.15 Baso # (Auto) 0.01 Abs Immat Gran (auto) 0.01 Imm/Tot Granulo (auto) 0.2 Sodium 143 Potassium 5.1 Chloride 113 Carbon Dioxide 20 Anion Gap 10 BUN 43 H Creatinine 1.8 H Estimated Creat Clear 38.69 Estimated GFR 39 Glucose 113 Calcium 8.8 C-Reactive Protein 16.3 H 13.7 H NT-Pro-B Natriuret Pep 41777 Procalcitonin 0.40 Lab Acknowledgement Test Added
[2023-08-01] MEDS: AMOXICILLIN/CLAVULANATE 875 mg/125 mg TABLET PO (18:18)
--- NOTE | 2023-08-01 19:50 | PC.NURSE ---
End of shift [id number] - Pt alert, oriented, cooperative and talkative during shift. Up independently in room. Continent of bowel and bladder. Tolerating RA, regular diet. VSS, afebrile during shift. Pt denies pain, SOB, dizziness, nausea. Family at bedside. Pt appears to be resting comfortably at end of shift.
[2023-08-01] MEDS: ATORVASTATIN 10 MG TABLET 20 MG PO (21:25)
[2023-08-01] MEDS: SODIUM CHLORIDE 0.9 % (FLUSH) 10 ML SYRINGE IVF (21:27)
[2023-08-02 03:35] VITALS: BP 91/59; PULSE 72; RESP 16; TEMP 36.2; O2SAT 95
--- NOTE | 2023-08-02 06:30 | PC.NURSE ---
Shift note [id number]: Pt has been denying pain when asked. He is independent with transferring/ambulation in room and noted to be alert & oriented x 4 and able to make needs known. VSS and pt has been afebrile. Pt continent of bowel and bladder. Daily weight of 166.6 on standing scale. IV SL to R AC noted to be patent and intact. Blood pressures noted to trend lower during NOC shift- 96/58 and 91/59 though pt is asymptomatic. Pt has denied CP, Shortness of breath, N/V and numbness and tingling when asked.
[2023-08-02 06:46] LABS: Basophils Absolute Auto 0.02 K/uL (0.00-0.30); Basophils Percent Auto 0.4 % (0.0-3.0); Eosinophils Absolute Auto 0.17 K/uL (0.00-0.50); Hematocrit 41.7 % (37.0-53.0); Hemoglobin* 13.2 gm/dL (13.5-17.5); Immature Granulocytes Abs Auto 0.01 K/uL (0.00-0.30); Immature Granulocytes Pct Auto 0.2 %; Lymphocytes Percent Auto 47.3 % (20-44); Mean Corpuscular HGB Conc 32 gm/dL (32-36); Mean Corpuscular Hemoglobin 28 pg (26-34); Mean Corpuscular Volume 88 fL (80-100); Monocytes Percent Auto 9.7 % (0.0-11.0); Neutrophils Percent Auto 39.4 % (42.0-72.0); Platelet Count* 186 K/uL (140-440); RDW Coefficient of Variation % 14.5 % (11.5-15.5); Red Blood Count 4.73 m/uL (4.30-5.90); White Blood Count* 5.69 K/uL (4.50-11.00)
[2023-08-02 06:48] LABS: Slide Review Reflex No
[2023-08-02 06:57] LABS: Chloride* 108 mmol/L (96-114)
[2023-08-02 06:58] LABS: Potassium* 5.1 mmol/L (3.6-5.1); Sodium* 140 mmol/L (135-149)
[2023-08-02 07:00] VITALS: BP 125/78; PULSE 74; RESP 16; TEMP 36.3; O2SAT 95
[2023-08-02 07:00] LABS: Creatinine* 1.9 mg/dL (0.5-1.5); Est. Creatinine Clearance* 37.01; Estimated Glomerular Filt Rate 37 ml/min
[2023-08-02 07:01] LABS: Anion Gap 9 mEq/L (7-15); Blood Urea Nitrogen* 40 mg/dL (7-30); Calcium* 8.8 mg/dL (8.4-10.6); Carbon Dioxide* 23 mmol/L (20-32); Glucose* 106 mg/dL (60-115)
[2023-08-02 07:04] LABS: C Reactive Protein* 6.5 mg/dL (0.5-1.0)
[2023-08-02 08:02] VITALS: PULSE 80
[2023-08-02] MEDS: AMOXICILLIN/CLAVULANATE 875 mg/125 mg TABLET PO (08:17)
[2023-08-02] MEDS: LACTOBACILLUS ACIDOPHILUS 1 TABLET 2 TAB PO (08:17)
[2023-08-02] MEDS: METOPROLOL TARTRATE 25 MG TABLET PO (09:21)
[2023-08-02] MEDS: DOXYCYCLINE HYCLATE 100 MG PO (09:21)
[2023-08-02] MEDS: APIXABAN 5 MG TABLET PO (09:21)
[2023-08-02] MEDS: SODIUM CHLORIDE 0.9 % (FLUSH) 10 ML SYRINGE IVF (09:23)
[2023-08-02 11:00] VITALS: BP 98/64; PULSE 78; RESP 20; TEMP 36; O2SAT 96
--- NOTE | 2023-08-02 15:36 | PC.NURSE ---
discharge. pt has been very pleasant. alert x4 Pt is denying pain. he is up ab king. SL was patent and later it was d/c intact. he is eating, drinking and voiding. tele shows A-Fib - Trigeminy. he wants to go home. went over discharge packet, with pt. went over 3 new medications, sent to pharmacy. went instruction, education and appointments. pt went over and signed personal belonging sheet. pt took all belongings and paperwork with him. he walked out with nurse. answered all question. told pt to call with any question or concerns.
--- NOTE | 2023-08-02 17:06 | PC.NURSE ---
Discharge - Pt alert, oriented, pleasant during shift. Denies pain, SOB, nausea. Pt up independent in room, to bathroom. Continent of bowel and bladder. Pt VSS, afebrile. Discharge teaching provided, belongings form signed. Pt discharged by self to son's home in [place] via independent ambulation. Discharged at approximately 1450.
[2023-08-03 00:59] LABS: Lyme ELISA Reflex 0.88 IV (<=0.90)
[2023-08-04 11:59] LABS: Anaplasma phagocyt PCR Detected; Babesia microti by PCR Not Detected; Babesia species by PCR Not Detected; Ehrlichia chaffeensis by PCR Not Detected; Ehrlichia ewingii/canis by PCR Not Detected; Ehrlichia muris-like by PCR Not Detected
--- NOTE | 2023-08-12 21:10 | PM.DS1 ---
DS: Providers Provider Date Seen: 08/02/23 Date of admission: 07/30/23 16:29 Primary care physician: Not a Local Provider Admitting Clinician: Chidi Wheeler MD Attending Physician on discharge: Gerard Estrada MD Date of Discharge: 08/02/23 DS: Diagnosis Discharge Diagnosis (1) Fever: Status: Acute (2) Tick bite: Status: Acute Problem details: - possible deer tick bite 2-3 weeks ago without dermatoses or other assessment up until this hospitalization. On oral doxycycline. (3) Sepsis: Status: Acute Problem details: Patient meets criteria for sepsis with tachycardia, hypotension, fever, elevated lactate. Because this will initiate empiric antibiotics pending cultures (4) Dental abscess: Status: Acute Problem details: - Developed in the last week. Root canal on 07/27/2023. - start oral Augmentin 875/1251 tab p.o. b.i.d. on 08/01/2023. (5) Chronic systolic heart failure: Status: Acute Problem details: - transthoracic echocardiogram 07/30/2023: Global LV hypokinesis with EF of 35%. Moderate to severe low-flow aortic stenosis. - continue on current medication regimen. - warrants outpatient cardiology follow-up. (6) Aortic stenosis: Status: Acute Problem details: - transthoracic echocardiogram 07/30/2023: Global LV hypokinesis with EF of 35%. Moderate to severe low-flow aortic stenosis. - continue on current medication regimen. - warrants outpatient cardiology follow-up. (7) Atrial fibrillation: Status: Acute Problem details: History of atrial fibrillation for several years. 2015 had a LESLY/cardioversion. Has had rhythm control with dronedarone. On Eliquis. Currently back in AFib. Continue Eliquis and monitor for now. Rate control if needed. No indication for cardioversion at this time. (8) Chronic kidney disease: Status: Acute Problem details: Patient probably has had a creatinine around 3 in the past. Obtain old records to assess chronicity and plan for chronic kidney disease. Continue to monitor. DS: Summary Hospital Course Hospital Course: History of present illness: ?Dc Joaquin is a 72 year old male admitted through the emergency department with fever. Patient was in his usual state of good health until July 16 when he awoke with profound fatigue and malaise. At that time he did not have a fever. He slowly got better over the next couple days that was not entirely normal when he had a routinely scheduled physical examination at clinic on July 19. At that time no obvious illness, infection was identified except they found that he had low white blood count and his creatinine was elevated at 3. The creatinine elevation was probably chronic by his reporting. In the past week he is having fevers. He can suppress the fever with acetaminophen but it comes back after a few hours. He is measuring oral temperatures at home between 101 in 102? F. Also in the past week he began to have pain in one of his molars on his right maxilla. Four days ago he was seen by his dentist for what looked like an abscessed tooth. He was started on Augmentin. Three days ago he underwent a root canal of that same tooth. He continued on Augmentin. The pain in his tooth is better. He continues to have fevers however. He has had no other symptoms of illness. Specifically denies cold, cough, sore throat, head or neck pain, shortness of breath, nausea or vomiting, abdominal pain, diarrhea, urinary problems, skin rash, swollen joints. He has no history of immunocompromise in condition. He has had no significant recent travel. This summer he visited his son in [place], [place]. He lives in [place], [place] and does spend some time outdoors. Heave visits his son in [place] and his who is a resident at [address] [place] [address]. He reports that he had a deer tick bite a few weeks ago. Other than his abscessed tooth he has not had obvious symptoms of illness.? Patient treated in hospital empirically for possible bacterial endocarditis secondary to dental abscess as well as possible tick-borne illness. Treated with IV Zosyn and oral doxycycline. His condition improved drastically in a relatively short period of time. We transitioned him over to oral doxycycline and Augmentin and he continued to do well on this until discharge. Blood cultures were negative in hospital. Tick-borne illness panel results were pending at time of discharge. Transthoracic echocardiogram obtained on 07/30/2023 in hospital not demonstrating any apparent valvular vegetations, with global LV hypokinesis with EF of 35%. Moderate to severe low-flow aortic stenosis which will warrant follow-up with his animal tech. Status at Discharge Functional status at discharge: independent ambulation Overall status at discharge: patient is progressing back to baseline Time Spent with Patient Time attestation: Total time spent providing and/or coordinating discharge services: Time spent: Greater than 30 minutes Exam Narrative: Exam Narrative: I examine him in his hospital room. Appears comfortable and in no acute distress. Friendly, articulate, cooperative. Alert, oriented to self, place, time, situation. Lungs clear to auscultation. Heart tones with regular rhythm. Grade 2/6 systolic murmur left lower sternal border unchanged. No gallop or rub. Abdomen with active bowel sounds, soft, nontender. Extremities without edema. Independent in transfer, station, and gait. No focal motor neurologic deficits. Skin is warm, dry, intact. No rashes, petechiae, or cyanosis. No splinter hemorrhages. DS: Data Imaging Echo: Radiologist's impression: Transthoracic echocardiogram obtained on 07/30/2023 in hospital not demonstrating any apparent valvular vegetations, with global LV hypokinesis with EF of 35%. Discharge Plan Discharge Disposition: Home, Self-Care Date of Admission: 07/30/23 16:29 Attending Provider on Discharge: Gerard Estrada Primary Care Provider: Provider,Not a Local Condition: Improved Anticipated Discharge Date/Time: 08/02/23 01:00 Discharge Medications: New doxycycline hyclate 100 mg Tablet 100 mg PO BID 12 Days Qty: 24 0RF amoxicillin-pot clavulanate 875-125 mg Tablet 1 tab PO BIDWM 5 Days Qty: 10 0RF Lactobacillus acidophilus 0.5 mg (100 million cell) Tablet 100 mmu cells PO TIDWM 30 Days Qty: 180 0RF Continued atorvastatin 20 mg tablet 20 mg PO DAILY Multaq 400 mg tablet 400 mg PO BID Eliquis 5 mg tablet 5 mg PO BID lisinopril 10 mg tablet 10 mg PO DAILY Discontinued amoxicillin-pot clavulanate 500-125 mg tablet 1 tab PO BID Discharge Orders: Discharge Order (Routine); Ordered 08/02/23 Ordered By: Gerard Estrada Patient Education: Doxycycline (By mouth), Amoxicillin/Clavulanate Potassium (By mouth), Probiotic (By mouth) (Acidophilus Probiotic Blend, Culturelle,..., Probiotic (By mouth), Lyme Disease (GEN), Dental Abscess (GEN), Tick Bite (GEN) Additional Instructions: 1. follow-up with your local PCP in 2-7 days; 2. follow-up with your dentist regarding dental abscess; 2. follow-up with your animal tech regarding aortic stenosis, chronic systolic heart failure, atrial fibrillation. Activity Level: Activity as Tolerated Discharge Diet: 2 gm Sodium Follow Up Appointments: Provider,Not a Local [Primary Care Provider] - Dale Robert MD [Staff Physician] - 08/09/23 12:45 pm ([facility] for follow-up.) Forms: [employer] Info Instructions
== END 2023-08-02 15:00 | disposition home or self-care (01) | DRG 867 ==
LOC: ED 14:23 → MEDSURG 16:10
PROVIDERS: Internal Medicine; Admitting Provider Family Medicine; Emergency Provider Emergency Medicine; Visit Provider Family Medicine
DX: A79.82 Anaplasmosis [A. phagocytophilum] (principal); A41.89 Other specified sepsis; I33.0 Acute and subacute infective endocarditis; I13.0 Hypertensive heart and chronic kidney disease with heart failure and stage 1 through stage 4 chronic kidney disease, or unspecified chronic kidney disease; I50.22 Chronic systolic (congestive) heart failure; I48.20 Chronic atrial fibrillation, unspecified; Z79.01 Long term (current) use of anticoagulants; N18.32 Chronic kidney disease, stage 3b; K04.7 Periapical abscess without sinus; Z95.1 Presence of aortocoronary bypass graft; I25.10 Atherosclerotic heart disease of native coronary artery without angina pectoris; I44.4 Left anterior fascicular block; I35.0 Nonrheumatic aortic (valve) stenosis
CPT/HCPCS: 36415; 80048; 80076; 81001; 83605; 83735; 83880; 84145; 84443; 84484; 85025; 85651; 86140; 86618; 87040; 87086; 87468; 87469; 87484; 87631; 87798; 93005; 93306; 95992; 99284; A9270; J0696; J3370; J7030; J7050; J7120; Q9957